=== PATIENT | female | born 1980 | race Caucasian/White ===

== ENCOUNTER 2020-03-28 00:43 | Outpatient (CLI) | payer BC, OTHER, SELFPAY ==
[2020-03-28 16:39] LABS: SARS-CoV-2 RNA PCR Negative
== END 2020-03-28 00:44 | disposition home or self-care (01) ==
LOC: ANHCOVIDDT 00:43
PROVIDERS: PCP Internal Medicine; Visit Provider Obstetrics & Gynecology
DX: Z01.812 Encounter for preprocedural laboratory examination (principal); Z20.828 Contact with and (suspected) exposure to other viral communicable diseases
CPT/HCPCS: 87635; C9803; U0003

== ENCOUNTER 2020-03-30 01:57 | Day surgery (SDC) | payer BC, OTHER, SELFPAY ==
[2020-03-18 14:47] VITALS: BMI 27.3
[2020-03-30] VITALS (7 sets, daily range): BP systolic 109–128; BP diastolic 61–91; PULSE 52–96; RESP 16–18; TEMP 36.7–37.1; O2SAT 100
--- NOTE | 2020-03-30 08:22 | WPDANESEPPF ---
Anes - Initial Pre Proc Eval Procedure: Operation Date: 03/30/20 12:00 Proposed Procedures p Laparoscopic Bilateral Salpingectomy - Eusebio Ahn MD Date/Time: 03/30/20 08:22 Surgeon: Eusebio hAn MD Pre Op Diagnosis: Desires sterilization Patient Data Age: 39 Gender: F Height: 5 ft 7 in Weight: 79.38 kg Allergies Allergy/AdvReac Type Severity Reaction Status Date / Time No Known Allergies Allergy Mild Unverified 03/18/20 14:48 Home Medications Medication Instructions Recorded Confirmed Type buspirone 15 mg PO BID 03/18/20 03/30/20 History cholecalciferol (vitamin D3) 25 mcg PO DAILY 03/18/20 03/30/20 History [Vitamin D3] multivitamin 1 tablet PO DAILY 03/18/20 03/30/20 History Patient hx anesthesia problems: none Family hx anesthesia problems: none [facility] Past Medical History Medical History (Updated 03/30/20 @ 08:22 by Kristian Vargas MD) Anxiety Social History Social History Years smoked: 20 Smoking status: Current some day smoker Tobacco type: cigarettes Alcohol intake: current Drinks per week: 10 Spiritual care concerns: No Anes - Eval Final PreProcedure Day of Procedure 03/30/20 08:22 Patient weight: normal Heart: regular rate and rhythm Lungs: clear to auscultation Airway: Mallampati scale class II Neurological: alert and oriented Last oral intake: >/= 8 hours ASA classification: II Emergent: no Anesthetic plan: proceed Anesthesia type and monitoring: general ETT and standard monitoring Informed Consent: The patient's anesthetic plan and its attendant risks and benefits were discussed with the patient/family/POA. Questions were solicited and answers provided to the satisfaction of the patient/family/POA.
[2020-03-30] MEDS: LACTATED RINGERS 1,000 ML 30 ML IV CONT ×2 (10:30→12:48)
[2020-03-30] MEDS: ACETAMINOPHEN 500 MG TABLET 1000 MG PO (10:32)
[2020-03-30] MEDS: KETOROLAC 15 MG/ML VIAL (*BKC) IV PUSH (10:49)
--- NOTE | 2020-03-30 11:52 | P.HP_ITS ---
H&P: HPI History of Present Illness Date/Time: 03/30/20 11:52 Chief complaint: Desires sterilization Narrative: Dulce Jimenez is a 39 year old female presents for permanent sterilization. We have discussed the permanence failure rate and increased risk of ectopic and regret and she strongly desires to proceed. Options have been discussed and declined. Review of Systems Review of Systems: All systems reviewed & are unremarkable except as noted in HPI and below PMFSH Past Medical History Medical History Anxiety Social History Social History Years smoked: 20 Smoking status: Current some day smoker Tobacco type: cigarettes Alcohol intake: current Drinks per week: 10 Spiritual care concerns: No Meds Home Medications and Allergies Home Medications Medication Instructions Recorded Confirmed Type buspirone 15 mg PO BID 03/18/20 03/30/20 History cholecalciferol (vitamin D3) 25 mcg PO DAILY 03/18/20 03/30/20 History [Vitamin D3] multivitamin 1 tablet PO DAILY 03/18/20 03/30/20 History Allergies Allergy/AdvReac Type Severity Reaction Status Date / Time No Known Allergies Allergy Mild Unverified 03/18/20 14:48 Vital Signs Vital Signs - 24 hr 03/30/20 10:44 Temperature 37.1 C Pulse Rate 78 Blood Pressure 122/91 H Pulse Oximetry 100 Exam 2 Const: General: no acute distress Resp: Auscultation: clear to auscultation bilaterally Cardio: Rate: regular rate Rhythm: regular rhythm GI: GI Palp: Yes Soft to palpation : External Female Exam: normal external appearance Other: Uterus n onenlarged nontender adnexa nonenlarged and nontender Assessment and Plan Assessment and plan (1) Encounter for sterilization: Code(s): Z30.2 - Encounter for sterilization Status: Acute Assessment and Plan: Will proceed with laparoscopic bilateral salpingectomy.
--- NOTE | 2020-03-30 11:54 | WPDHPUPDATE1 ---
History and Physical Update Update Date/Time: 03/30/20 11:54 History and Physical has been reviewed, including an updated exam of the patient. There are NO changes in the patient's condition. Risks, benefits, and alternatives have been discussed and questions answered. Patient agrees to proceed with procedure.
--- NOTE | 2020-03-30 12:37 | PM.OP ---
Procedure Note - Brief Procedure Note - Brief Date of procedure: 03/30/20 Pre-op diagnosis: Desires sterilization Post-op diagnosis: same Procedure performed: Laparoscopic bilateral salpingectomy Description of procedure: patient prepped and draped usual manner for this procedure. Cervical instruments were placed for uterine mobility throughout the case. Abdominal trocar sites were placed under direct visualization. Using the Harmonic scalpel the mesial salpinx was cauterized and cut bilaterally and the tubes were removed without difficulty. There was no bleeding. No evidence of pathology throughout the rest of the pelvis. Gas was allowed escape incisions approximated using 4 0 Monocryl once the trocars were removed. Anesthesia: GLMA Surgeon: Eusebio Ahn MD Estimated blood loss (mL): 10 Drains: No Packing: No Pathology: yes Complications: No immediate complications Condition: stable Disposition: PACU Findings: Uterus tubes and ovaries without abnormality.
[2020-03-30] MEDS: oxyCODONE HCL (*CRX) 5 MG TAB IR PO (13:44)
== END 2020-03-30 14:23 | disposition home or self-care (01) ==
PROVIDERS: PCP Internal Medicine; Visit Provider Obstetrics & Gynecology
PROC: (CPT 49320; principal; 2020-03-30 12:00)
DX: Z30.2 Encounter for sterilization (principal); N83.8 Other noninflammatory disorders of ovary, fallopian tube and broad ligament
CPT/HCPCS: 58661; 87635; 88302; A9270; C9803; J0330; J1885; J2250; J2405; J2704; J3010; J7030; J7120; U0003

== ENCOUNTER → 2021-01-02 16:05 | Outpatient (REF) | payer OTHER, SELFPAY | LOC: ANHLAB 16:05 | PROVIDERS: PCP Internal Medicine; Visit Provider Nurse Practitioner | DX: D22.39 Melanocytic nevi of other parts of face (principal) | CPT/HCPCS: 88305 ==

== ENCOUNTER 2024-05-28 17:20 | Outpatient (CLI) | payer OTHER, SELFPAY ==
--- NOTE | ~2024-05-28 | XR_ITS ---
HISTORY: Low back pain unspecified COMPARISON: None TECHNIQUE: 3 views of the sacrum and coccyx were performed FINDINGS: Separation of the distal coccyx is detected of approximately 6 mm. Smaller separation of the proximal coccyx of 3 mm is noted. Bone mineralization is unremarkable. IMPRESSION: Coccygeal separation, as detailed above. Reviewed, dictated and finalized at location A. NIC SECTION TECHNICAL LEAD
--- NOTE | ~2024-05-28 | XR_ITS ---
HISTORY: Low back pain unspecified COMPARISON: None. TECHNIQUE: 3 view lumbar spine. FINDINGS: Lumbar vertebral bodies are normally aligned. There are 5 non-rib bearing lumbar vertebral bodies. Disc spaces and vertebral body heights are well maintained. There are no lytic or sclerotic lesions. Paraspinal soft tissues are normal. IMPRESSION: Unremarkable lumbar spine series, as detailed above. Reviewed, dictated and finalized at location A. 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
== END 2024-05-28 17:21 | disposition home or self-care (01) ==
LOC: ANHIMG 17:25
PROVIDERS: PCP Internal Medicine; Visit Provider Internal Medicine
DX: S33.2XXA Dislocation of sacroiliac and sacrococcygeal joint, initial encounter (principal); X58.XXXA Exposure to other specified factors, initial encounter
CPT/HCPCS: 72100; 72220

== ENCOUNTER 2025-02-04 04:44 | Emergency (ER) | payer OTHER, SELFPAY ==
--- OUTSIDE RECORDS SUMMARY | 2025-02-04 04:46 | XMS_ITS | Data Portability ---
Author Organization [place] [facility] [employer], Main Office Address [address] [place] [address] Care Team Providers Care Jigger Operator Name Role Phone CHARIS BATES Primary Care Provider [phone] CHARIS BATES Referring Provider Assessment Encounter Date Assessment Date Assessment LastModified by Organization Details LastModified Time 03/03/2024 03/03/2024 the patient has continuing lateral epicondylitis of the right elbow we talked about further treatment options we could try 1 more shot of cortisone. If this continues on and on 1 solution could be surgical intervention we talked about this in detail today she would like to avoid that I agree hopefully we will get her better with time we talked about aggressive massage stretching icing as well she will continue with oral anti-inflammator y medication. Under sterile conditions I injected the patient's right elbow lateral epicondylar ECRB attachment with 2 cc 0.5% Marcaine and 10 mg of Kenalog. Patient tolerated procedure well. I will see her back as needed she has an elbow strap she will use this as well and try to avoid activities aggravate her symptoms. She voiced understanding agrees above plan she will call for any further problems difficulties or questions. 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 She has had a recurrence of pain lately she would like to try 1 last shot of cortisone to see if this helps after that she may need to consider surgical intervention. Today we talked about the surgery in detail including risks benefits limitations and alternatives the procedure itself and recovery time. If the shot does not give her good long-term relief she is going to consider surgery and I have given her Dr. So's card today to follow up with him if necessary. At her request under sterile conditions I injected the patient's right elbow lateral epicondylar ECRB attachment with 2 cc of 0.5% bupivacaine and 10 mg of Kenalog. Patient tolerated procedure well. We are also going to try a course of Celebrex 200 mg daily she will start this after she tries a course of oral prednisone for 6 days with a burst and taper. She will use ice stretching and activity modification as necessary she also has an elbow strap that she is using. She will continue with this. She voiced understanding and agreed with the above plan she will call for any further problems difficulties or questions. Not available 07/31/2024 11:44:40 Plan of Treatment Reminders Order Date Submit Date Provider Last Modified By Organization Details Last Modified Time Details Appointments None recorded. Lab CBC w/ auto diff 2024 025 [email or web address] [facility] (Lab), [address] [place], [address], 5 15:45:59 CMP, serum or plasma [email or web address], [address] [place], [address], 5 15:46:09 lipid panel, serum 2024 025 [facility], [address] [place], [address], 5 20:29:21 Referral None recorded. Procedures injection/a spiration joint/bursa (PROC) 2024 025 [email or web address] In-Office Order, Internal Use Only DO Not Attach Compendium DO Not Attach Compendium, Do Not Delete/merge, [id number] 5 10:53:15 injection/a spiration joint/bursa (PROC) 2023 024 [email or web address] In-Office Order, Internal Use Only DO Not Attach Compendium DO Not Attach Compendium, Do Not Delete/merge, [id number] 09:13:10 Surgeries None recorded. Imaging XR, elbow 2024 025 [email or web address] [facility], [address], [place], [address], 11:46:00 Medication Orders meloxicam 7.5 mg tablet 2024 025 [facility] #88584, [address], [place], [place], [id number], 5 12:36:40 buspirone 15 mg tablet 2024 025 [facility] #46996, [address], [place], [place], [id number], 5 12:36:40 buspirone 15 mg tablet 2024 025 [facility], [address], [id number], 5 12:58:05 trazodone 50 mg tablet 2024 025 [facility] #33279, [address] [place], [place], [id number], 5 16:00:34 bupivacaine HCl 0.5 % (5 mg/mL) injection solution 2024 025 [email or web address] eaflaquita [facility] #91419, [address], [place], [place], [id number], 5 15:47:14 Kenalog 10 mg/mL suspension for injection 2024 025 [email or web address] eaflaquita [facility] #06881, [address], [place], [place], [id number], 5 15:47:17 prednisone 10 mg tablets in a dose pack [email or web address] [facility] #95439, [address], [place], [place], [id number], 5 15:48:04 celecoxib 200 mg capsule [email or web address] [facility] #37361, [address], [place], [place], [id number], 5 15:47:48 Marcaine (PF) 0.5 % (5 mg/mL) injection solution 2023 024 [email or web address] [facility] #26906, [address], [place], [place], [id number], 5 10:51:12 Kenalog 10 mg/mL suspension for injection [email or web address] [facility] #39428, [address], [place], [place], [id number], 5 15:47:17 Patient TargetsNo targets recorded. Patient Instructions Encounter Date Encounter Id Patient Instructions Last Modified By Organization Details Last Modified Time 12/15/2024 [id number] Take medication as discussed in office. Must come back in one month for follow up. [email or web address] Not available 12/15/2024 12:48:27 Discussed stress and anxiety tools to use to help with worry. Discussed therapy Not available 12/15/2024 12:46:02 01/06/2025 [id number] Take medication as discussed in office as needed. Make sure to take with food, avoid additional otc medications while taking meloxicam. [email or web address] Not available 01/06/2025 12:34:10 Discussed medications and overall improvements with anxiety at this time. If side effects begin or s/hi occurs, please stop taking medication and call office. [email or web address] Not available 01/06/2025 12:36:09 Reason for Referral None Reported. Results Created Date Observation Date Name Description Value Unit Range Abnormal Flag Note LastModifiedBy Organization Detail LastModifiedTime 05/29/20 24 05/28/2024 XR, sacru m + coccy x No observ ation record ed. [address] [facility] [address] [facility] [address], [place], [address], 06/03/2024 08:55:11 05/29/20 24 05/28/2024 XR, sacru m + coccy x No observ ation record ed. [email or web address] [facility] [address] [facility] [address], [place], [address], 06/03/2024 09:47:59 05/29/20 24 05/28/2024 XR, sacru m + coccy x No observ ation record ed. [address] [facility] [address] [facility] [address], [place], [address], 06/03/2024 08:31:51 07/31/19 25 XR, elbow No observ ation record ed. [email or web address] [facility] [place] [address] [facility] [address], [place], [address], 07/31/2024 11:45:11 Result Notes None recorded. Problems Name Problem SNOMED Code Status Onset Date Resolution Date Notes Provider Name and Address Organization Details Recorded Time Constipat ion 07154576 Completed Not Available [facility] 3 14:10:28 Hyperhidr osis 345477497 Active Not Available [facility] 3 14:10:28 Localized , primary osteoarth ritis of elbow 934938617 Completed Not Available [facility] 3 14:10:28 Depressiv e disorder 01761813 Active Not Available [facility] 3 14:10:28 Pharyngit is 629714593 Completed Not Available [facility] 3 14:10:28 Anxiety 11952958 Active Not Available [facility] 3 14:10:28 Pain of elbow region 29581629 Completed 202001/19/2022 Not Available [facility] 3 14:10:29 Normal grief reaction 878905297 Active 2021 Not Available [facility] 3 14:10:28 Acute sinusitis 68009572 Active 2021 Not Available [facility] 3 14:10:28 Dizziness 329248149 Completed 202107/30/2022 Not Available [facility] 3 14:10:28 Vertigo 913946632 Active 2021 Not Available [facility] 3 14:10:28 Eruption 844185378 Active 2022 Iesha Kendall RN null, [place] [facility] 3 12:07:42 Acute urinary tract infection 049155787 Active 2022 Mary Carlin LPN null, [place] [facility] 3 14:04:35 Cyst of skin 256919645 Active 2022 Charis Bates MD [address] [facility], [address] [address], [place], [address] , [facility] 3 14:56:16 Sore throat 093671490 Active 2022 Mary Carlin LPN null, [place] [facility] 3 12:46:38 Pain of right elbow joint 56236737309 613314 Active 2022 Maribel Red CNA null, [place] [facility] 3 11:25:40 Lateral epicondyl itis of right humerus 15707016848 9107 Active [address] [facility] [facility] [address], [place], [address] , [facility] 3 11:52:03 Nausea 524331015 Active 2023 Nancy Santos MA null, [place] - [facility] [employer] [facility] 4 14:10:04 Low back pain 353274293 Active 2023 Nancy Santos MA null, [place] [employer] [facility] [employer] [facility] 4 14:01:21 Otalgia of left ear 0556105146 Active 2024 Charis Bates MD [address] [facility], [facility] [address], [place], [address] , [facility] [employer] [facility] 5 15:58:33 Insomnia 035455493 Active 2024 Mary Carlin LPN null, [place] [employer] [facility] [employer] [facility] 5 12:40:20 Problem Notes None recorded. Procedures Surgical History Date Name Laterality Status Provider Name and Address Organization Details Recorded Time 03/30/20 Tubal Ligation completed Not Available [facility] 09/12/2022 14:09:49 03/11/20 20 Date of Last Pap Smear completed Not Available [facility] 09/12/2022 14:09:49 01/20/20 15 other completed Not Available [facility] 09/12/2022 14:09:49 loop electrosurgical excision procedure completed Not Available [facility] 09/12/2022 14:09:49 Imaging Results None recorded. Procedure Notes None recorded. Medical Equipment None Reported. Allergies No known drug allergies Medications Name Sig Start Date Stop Date Status Note LastModified by Organization Details LastModified Time celecoxib 200 mg capsule TAKE 1 CAPSULE BY MOUTH EVERY DAY 08/18 completed Not Available Not Available Not Available cyclobenza morgan 10 mg tablet 05/18 completed Not Available Not Available Not Available amoxicilli n 500 mg capsule TAKE 1 CAPSULE BY MOUTH THREE TIMES DAILY FOR 7 DAYS 06/21 completed Not Available Not Available Not Available prednisone 10 mg tablet active Not Available Not Available Not Available doxycyclin e hyclate 100 mg capsule TAKE 2 CAPSULES BY MOUTH EVERY DAY active Not Available Not Available No t Available trazodone 50 mg tablet TAKE 1 TABLET BY MOUTH AT BEDTIME NEEDED 2024 active Not Available Not Available Not Avai lable ibuprofen 800 mg tablet TK 1 T PO TID active Not Available Not Available No t Available fluconazol e 150 mg tablet active Not Available Not Available Not Available hydrocodon e 5 mg-acetami nophen 325 mg tablet TK 1 T PO Q 6 H PRN P active Not Available Not Available No t Available meloxicam 15 mg tablet TK 1 T PO D PRN 10/30 completed Not Available Not Available Not Available Elidel 1 % topical cream active Not Available Not Available Not Available ondansetro n HCl 4 mg tablet TAKE 1 TABLET BY MOUTH THREE TIMES DAILY NEEDED 07/31 completed Not Available Not Available Not Available bupivacain e HCl 0.5 % (5 mg/mL) injection solution Take 10 mg by injectio n route. 08/18 completed Not Available Not Available Not Available spironolac tone 100 mg tablet TAKE 1 TABLET DAILY 06/21 completed Not Available Not Available Not Available topiramate 25 mg tablet 05/18 completed Not Available Not Available Not Available phentermin e 37.5 mg tablet 05/18 completed Not Available Not Available Not Available tramadol 50 mg tablet 05/18 completed Not Available Not Available Not Available prednisone 10 mg tablets in a dose pack Take 1 tab by mouth, 3 times a day for 3 daysTake 1 tab by mouth 2 times a day for 2 daysTake 1 tab by mouth once a day for 1 day 08/18 completed Not Available Not Available Not Available meloxicam 7.5 mg tablet TAKE 1 TABLET BY MOUTH EVERY DAY FOR 30 DAYS active Not Available Not Available No t Available Claritin-D 24 Hour 10 mg-240 mg tablet,ext ended release Take 1 tablet every day by oral route as needed. 03/11 completed Not Available Not Available Not Available lorazepam 0.5 mg tablet TAKE 1 TABLET BY MOUTH TWICE DAILY NEEDED 06/21 completed Not Available Not Available Not Available Kenalog 10 mg/mL suspension for injection Take 10 mg by injectio n route. 08/18 completed [facility]: [phone] 94-20 Not Available Not Available Not Available meclizine 25 mg tablet Take 1 tablet 3 times a day by oral route as needed. 06/21 completed Not Available Not Available Not Available erythromyc in 5 mg/gram (0.5 %) eye ointment APPLY SMALL AMOUNT IN RIGHT EYE AT BEDTIME active Not Available Not Available No t Available oseltamivi r 75 mg capsule 03/11 completed Not Available Not Available Not Available ranitidine 150 mg tablet 05/18 completed Not Available Not Available Not Available prednisone 50 mg tablet 05/18 completed Not Available Not Available Not Available Drysol Dab-O-Kulwant c 20 % topical solution Apply every day by topical route at bedtime. 01/22 completed Not Available Not Available Not Available ergocalcif dorothy (vitamin D2) 1,250 mcg (50,000 unit) capsule 05/18 completed Not Available Not Available Not Available methylpred nisolone 4 mg tablets in a dose pack FOLLOW PACKAGE DIRECTIO NS 07/31 completed Not Available Not Available Not Available fluoxetine 20 mg capsule active Not Available Not Available Not Available naproxen 500 mg tablet Take 1 tablet twice a day by oral route. active Not Available Not Available No t Available spironolac tone 50 mg tablet TAKE 1 TABLET BY MOUTH EVERY DAY 03/28 completed Not Available Not Available Not Available buspirone 15 mg tablet TAKE 1 TABLET BY MOUTH TWICE DAILY NEEDED active Not Available Not Available No t Available clindamyci n 1 % lotion active Not Available Not Available Not Available escitalopr am 10 mg tablet Take 1 tablet every day by oral route. active Not Available Not Available No t Available cyclobenza morgan 5 mg tablet Take 1 tablet 3 times a day by oral route. active Not Available Not Available No t Available Marcaine (PF) 0.5 % (5 mg/mL) injection solution Take 10 mg by injectio n route. 07/31 completed Not Available Not Available Not Available nitrofuran toin monohydrat e/macrocry stals 100 mg capsule TAKE 1 CAPSULE BY MOUTH EVERY 12 HOURS FOR 5 DAYS 06/21 completed Not Available Not Available Not Available metronidaz ole 1 % topical gel APPLY TO FACE ONCE DAILY. MOISTURI ZE AFTER active Not Available Not Available No t Available lidocaine (PF) 10 mg/mL (1 %) injection solution In office injectio n administ ered by the provider 01/30 completed [facility]: 0409-42 76-17 Not Available Not Available Not Available Oracea 40 mg capsule,im mediate - delay release active Not Available Not Available Not Available tretinoin 0.05 % topical gel 10/09 completed Not Available Not Available Not Available Suprep Bowel Prep Kit 17.5 gram-3.13 gram-1.6 gram oral solution MIX AND DRINK PO UTD 10/30 completed Not Available Not Available Not Available SulfaClean se 8-4 8 %-4 % topical suspension 05/18 completed Not Available Not Available Not Available Onexton 1.2 % (1 % base)-3.75 % topical gel 10/30 completed Not Available Not Available Not Available Soolantra 1 % topical cream APPLY A PEA-SIZE D AMOUNT BY TOPICAL ROUTE ONCE DAILY TO COVER AREAS OF FACE WITH THIN LAYER AVOIDING THE EYES AND LIPS 06/21 completed Not Available Not Available Not Available Fluvirin 8396-9589 45 mcg (15 mcg x 3)/0.5 mL intramuscu lar suspension active Not Available Not Available N ot Available Aczone 7.5 % topical gel with pump 05/18 completed as needed Not Available Not Available Not Available Fluvirin 7618-1549 45 mcg (15 mcg x 3)/0.5 mL intramuscu lar suspension ADM 0.5ML IM UTD 10/30 completed Not Available Not Available Not Available Afluria Quad 5168-8131 (PF) 60 mcg (15 mcg x 4)/0.5 mL IM syringe ADM 0.5ML IM UTD 10/09 completed Not Available Not Available Not Available Afluria Qd 2018- (36 mos up)(PF)60 mcg (15 mcg x4)/0.5 mL IM syringe ADM 0.5ML IM UTD 05/18 completed Not Available Not Available Not Available ID NOW COVID-19 Test Kit USE DIRECTED 01/22 completed Not Available Not Available Not Available COVID-19 test specimen collection TEST DIRECTED 01/22 completed Not Available Not Available Not Available Vitals Date Recorded Body height Body mass index (BMI) Body weight Provider Name and Address Organization Details Last Updated DateTime 07/31/2024 170.18 cm 26.6 kg/m2 12337.7 g BERTRAND Anguiano [employer] 07/31/2024 10:50:20 Date Recorded Body height Body temperature Heart rate Oxygen saturation Oxygen saturation in Arterial blood by Pulse oximetry Systolic And Diastolic Provider Name and Address Organization Details Last Updated DateTime 02/04/202 5 170.18 cm 97 [degF] 75 /min 98 % 98 % 140/96 mm[Hg] SHARRON Haro [place] [employer] [facility] [employer] 5 15:46:07 Date Recorded Body height Body mass index (BMI) Body weight Body temperature Oxygen saturation Oxygen saturation in Arterial blood by Pulse oximetry Heart rate Systolic And Diastolic Provider Name and Address Organization Details Last Updated DateTime 5 170.18 cm 27.9 kg/m2 56877.8 8 g 97.5 [degF] 98 % 98 % 70 /min 122/84 mm[Hg] Madison Almodovar RN [facility] [employer] 5 12:19:59 Date Recorded Body height Body mass index (BMI) Body weight Body temperature Oxygen saturation Oxygen saturation in Arterial blood by Pulse oximetry Heart rate Systolic And Diastolic Provider Name and Address Organization Details Last Updated DateTime 5 170.18 cm 27.9 kg/m2 50808.4 4 g 97.4 [degF] 98 % 98 % 82 /min 128/78 mm[Hg] Lazara andersen [place] [employer] [facility] [employer] 5 11:54:20 Date Recorded Body height Body mass index (BMI) Body weight Provider Name and Address Organization Details Last Updated DateTime 03/03/2024 172.72 cm 25.8 kg/m2 76852.7 g Maribel Red CNA [place] [employer] [facility] [employer] 03/03/2024 09:02:49 Social History Question Answer Notes LastModified by Organizat ion Details LastModified Time Tobacco Smoking Status Never Smoker Not Available [facility] 09/12/2022 14:09:48 What Is Your Level Of Caffeine Consumption? Occasional [id number] Information not available 09/12/2022 How Much Tobacco Do You Chew? None [id number] Information not available 09/12/2022 What Type Of Diet Are You Following? REGULAR [id number] Information not available 09/12/2022 Which Illicit Or Recreational Drugs Have You Used? None [id number] Information not available 09/12/2022 What Was The Date Of Your Most Recent Tobacco Screening? 12/05/2020 [id number] Information not available 09/12/2022 What Is Your Relationship Status? [id number] Information not available 09/12/2022 Do You Use Sunscreen Routinely? Yes [id number] Information not available 09/12/2022 Sex: Female Functional Status Question Answer Note LastModified by Organizat ion Details LastModified Time Do you use any illicit or recreational drugs? No [id number] Information not available 09/12/2022 What is your level of alcohol consumption? 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 Occasional [id number] [id number] Information not available 09/12/2022 Mental Status None recorded. Family History Relationship Description Onset Age of this Age Resolved Age Notes LastModified by Organization Details LastModified Time Paternal Grandfather Diabetes mellitus [id number] Not available 09/12/2022 14:09:49 Paternal Grandfather Essential hypertension [id number].119 [id number] Not available 09/12/2022 14:09:49 Paternal Grandfather Malignant tumor of pharynx [id number].144 [id number] Not available 09/12/2022 14:09:50 Father Essential hypertension [id number] [id number] Not available 09/12/2022 14:09:50 Paternal Grandmother Malignant tumor of pancreas [id number].303 [id number] Not available 09/12/2022 14:09:50 Maternal Grandfather Diabetes mellitus [email or web address] Not available 2022 11:23:41 Maternal Grandfather Family history of malignant neoplasm [email or web address] Not available 2022 11:24:20 Maternal Grandfather Heart disease [email or web address] Not available 2022 11:24:36 Maternal Grandmother Family history of malignant neoplasm [email or web address] Not available 2022 11:24:20 Father Family history of stroke [email or web address] Not available 2022 11:24:58 Medical History Condition Response ANXIETY DISORDER Y HERPES Y Gynecological History Statement/Question Response Abnormal Pap Y Date of Last Pap 03/11/2020 Date of Last Pap Smear 03/11/2020 Current Control Method Sterilizati on Age at Menarche 12 Date of LMP 03/14/2021 Obstetrics History GPAL:G 2 P 2 0 0 2 Type Value Full Term 2 Living 2 Total 2 Immunizations Vaccine Type Date Status Note Provider Nam e and Address Organization Details Recorded Time Influenza, split virus, quadrivalent, preservative 9 completed Not Available [facility] 09/12/2022 14:12:13 influenza, unspecified formulation 8 completed Not Available [facility] 09/12/2022 14:12:13 influenza, unspecified formulation 6 completed Not Available [facility] 09/12/2022 14:12:13 Influenza, high-dose, trivalent, PF 5 completed Not Available [facility] 09/12/2022 14:12:13 COVID-19, mRNA, LNP-S, bivalent, PF, 10 mcg/0.2 mL 1 completed Not Available [facility] 09/12/2022 14:12:13 Past Encounters Encounter ID Performer Location Encounter Start Date Encounter Closed Date Diagnosis/Indication Diagnosis SNOMED-CT Code Diagnosis ICD10 Code Diagnosis Note [id number] Charis Bates MD [facility] [address] [address] 12/05/2020 00:00:00 12/05/2020 17:11:40 [id number] [facility] ic_[facility] _ATHENA_M IGRATION_ DEFAULT_1 _1 , 03/28/2021 00:00:00 03/28/2021 15:38:27 [id number] Charis Bates MD [facility] [address] [address] 01/22/2022 00:00:00 01/22/2022 12:57:52 [id number] Charis Bates MD [facility] [address] [address] 02/23/2022 00:00:00 02/23/2022 12:08:55 [id number] Charis Bates MD [facility] [address] [address] 03/06/2022 00:00:00 03/06/2022 11:53:01 [id number] Charis Bates MD [facility] [address] [place] [address] 07/31/2022 00:00:00 07/31/2022 16:30:22 [id number] Charis Bates MD [facility] [address] [place] [address] 04/30/2023 14:39:37 04/30/2023 14:55:47 Cyst of skin 854815698 L72.9 watchcall if gets painful or gets bigger [id number] ANITA Metcalf [facility] [address] [place] [address] 06/21/2023 11:13:34 06/21/2023 11:47:15 Pain of right elbow joint 1643955118 9528444 M25.521 Lateral ep icondylitis of right humerus 7548946589 50320 M77.11 [id number] Emeterio So MD [facility]_[address] [address] 01/07/2024 09:22:06 01/07/2024 10:37:33 Pain of right elbow joint 2834468337 6063033 M25.521 Lateral ep icondylitis of right humerus 9062784575 47978 M77.11 [id number] Emeterio So MD [facility] [address] [address] 03/03/2024 08:58:04 03/03/2024 10:11:02 Pain of right elbow joint [id number] M25.521 Lateral ep icondylitis of right humerus [id number] 04867 M77.11 [id number] Emeterio So MD [facility] [place] [address] [place] [address] 07/31/2024 10:41:35 07/31/2024 11:38:28 Pain of right elbow joint [id number] M25.521 Lateral ep icondylitis of right humerus [id number] 13153 M77.11 [id number] Charis Bates MD [facility] [address] [place] [address] 08/18/2024 15:39:47 08/18/2024 16:02:23 Otalgia of left ear [id number] H92.02 advil cold and sinus Insomnia [id number] G47.0 0 Adult heal th examination [id number] Z00.00 Z13.760 [id number] Charis Bates MD [facility] [address] [place] [address] 12/15/2024 12:09:18 12/15/2024 12:58:56 Anxiety 60587420 F41.9 Denies s/hi at this time. [id number] Charis Bates MD [facility] Internal [facility] [address] [place] [address] 01/06/2025 11:46:34 01/06/2025 12:46:51 Anxiety 07240173 F41.9 Denies s/hi at this time. Lateral ep icondylitis of right humerus [id number] 28737 M77.11 Health Concerns Section Related Observation LastModified by Organization Detai ls LastModified Time None Recorded Concern Status LastModified by Organization Details LastModified Time None Recorded Advance Directives Directive None Recorded Payers Insurance Date Sequence Insurance Name Policy Number Policy Piedra Covered Member ID Piedra Member ID Guarantor Name 01/03/2025 1 [facility] [id number] Dulce Jimenez [id number] Dulce Jimenez Notes Date Note Type Note Provider Name and Address Organization Details Recorded Time 03/03/2024 text/html Patient returns with continued right elbow pain she had a shot of cortisone a few months ago for lateral epicondylitis. This has been going on and off for years. She had a shot of cortisone in June again a few months later she comes in today stating that it is a little bit better but the pain comes and goes today is a bad day for her she can not sleep last night she has aching pain localized to the lateral epicondylar region she can not do anything heavy repetitive recently she has been moving her father into assisted living doing lots of heavy lifting with moving boxes etc. and this has really aggravated her elbow she comes in today to talk about further treatment options currently she is taking an anti-inflammatory every morning she did try prednisone but this made her too jittery and nervous she had to stop taking it. She does work on stretching and uses an elbow strap as well. ANITA Metcalf [address], [place], [address], [facility] [employer] 03/03/2024 09:16:00 07/31/2024 text/html The patient retu rns with a history of chronic right elbow pain over the lateral epicondylar region. Four years ago she had multiple injections it finally calmed down she had lateral epicondylitis not due to any known trauma or injury. Over the last year she has had couple of injections which gave her good relief but it does not last. She keeps having recurrent lateral epicondylar pain of the right elbow she can not do anything heavy repetitive. She has taken Celebrex in the past this worked well for her previously but she has run out and has not taken it for quite awhile. She was doing well so she stopped taking it over the past few weeks she has had recurrent pain without specific trauma or injury she likes to go bowling in these activities aggravate her symptoms. Today she states the pain is about an 8 on a scale of 1-10 she comes in today for further evaluation and treatment. A new past medical history sheet was reviewed and signed on the intake sheet of today's date drug allergies current medications family social history previous surgical history 10 point review of systems was reviewed and discussed in detail today with the patient. ANITA Metcalf [address], [address], [place], [address], [facility] [employer] 07/31/2024 11:45:55 08/18/2024 text/html Pt is here today C/o left ear pain, Has been going on since this morning, feels like a deep achemild sinus problemno fever Also C/o insomnia, has been going on for about 1 yr. Has tried OTC sleep aid and melatonin and has not helped. B/p was a little high today Charis Bates MD [address], [place], [address], [place] [facility] [employer] 08/18/2024 16:00:44 12/15/2024 text/html Patient is 43y/o female who is here to restart medications. She reports that with all of the life events she can not handle the anxiety and stress at this time. She also states she is not sleeping at all. She reports that she can not turn her mind off at night making her anxiety worse. She is afraid that she will loose her job due to the anxiety and distraction at this time. Patient denies chest pain, shortness of breathe, palpitations, or S/Hi at this time. Therapy-discussedMed compliance- discussed S/hi- denies patient states she feels it is more anxiety related, not depression. JOSE Tinoco [address], [address] [address], [place], [address], [employer] [facility] [employer] 12/15/2024 12:58:19 01/06/2025 text/html Patient is 44y/o female who is here for follow up on medication. Patient states that it has been working but recently just had a family trauma and has been having increased anxiety. She reports no side effects and denies Si/hi at this time. She also is reporting that she is having break through pains related to her elbow. She reports she sees Dr. Mariano but OTCs are not helping with pain or discomfort. She denies history of kidney function, ulcers, acid reflux, or stomach concerns. Orthopedics- Dr Mariano gets cortizone shots but also still needingadditional help with discomfort JOSE Tinoco [address], [address] [address], [place], [address], [employer] [facility] [employer] 01/06/2025 12:36:58 OBGyn Episode No OBEpisode recorded.
--- OUTSIDE RECORDS SUMMARY | 2025-02-04 04:46 | XMS_ITS | Continuity of Care Document ---
Author Organization [facility] Address [address] [place] [address] Phone Care Team Providers Care Contact Lens Cutter Name Role Phone Vaughn OD, Calvin Unavailable Unavailable Advance Directives Directive Yes / No Effective Date File Name No Information Encounters Encounter Description Practice Location Reason(s) For Visit Diagnoses Date Provider Providers Copied on Encounter [facility], [address], [place], [place], [id number], [place] tel:[phone] [facility] No Information 9-200 5 Vaughn OD Calvin. [address] [facility] [facility] , [address], [place], [address], [place]. tel:[phone] Family History Family Member Type Diagnosis Age At Onset No Information Payers Payer name Insurance type Covered libertarian ID Authoriza tishayna(s) [facility] Commercial CI [id number] Social History Type Description Quantity Date Captured Comments Sex Female Smoking Status No Information Chief Complaint And Reason For Visit No Information Reason For Referral Reason For Referral No Information History Of Present Illness Encounter Date Complaint History Of Prese nt Illness No Information Functional Status Date Functional Assessmen t No Information Instructions Date Instruction Additional Infor mation No Information Assessments Type Assessment Date No Information Patient Care Teams Name Effective Dates (start - stop) Status Members No Information
--- OUTSIDE RECORDS SUMMARY | 2025-02-04 04:46 | XMS_ITS | Clinical Summary ---
Author Organization [facility] Address [address] [place] [place] [address] Care Team Providers Care Etcher Machine Name Role Phone Unavailable Primary Care Provider Unavailabl e Source Comments [facility],non-owned Affiliates and Associated Physician Practices is amultiple site organization consisting of ambulatory clinics and hospital sitesin [place], [place], [place] and [place]. This disclosure is being madepursuant to the Care Everywhere program and may not contain all information available regarding this patient. Last updated 18.[facility] Allergies No known active allergies Medications * Be aware that medications may not be up to date on this document. Alwaysverify current medications with the patient. 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 Gender Identity Not on file Sexual Orientation Not on file Last Filed Vital Signs Vital Sign Reading Time Taken Comments Blood Pressure 110/70 09/01/2019 3:08 PM DISPATCHER [employer]ICE [employer] WORK Pulse 84 09/01/2019 3:08 PM DISPATCHER SERVICE [employer] WORK Temperature 36.9 C (98.4 F) 09/01/2019 3:08 PM DISPATCHER SERVICE [employer] WORK Respiratory Rate 16 09/01/2019 3:08 PM DISPATCHER SERVICE OR WORK Oxygen Saturation 98% 09/01/2019 3:08 PM DISPATCHER SERVICE OR WORK Inhaled Oxygen Concentration - - Weight 81.6 kg (180 lb) 09/01/2019 3:08 PM DISPATCHER SERVICE OR WORK Height 172.7 cm (5' 8) 09/01/2019 3:08 PM DISPATCHER SERVICE OR WORK Body Mass Index 27.37 09/01/2019 3:08 PM DISPATCHER SERVICE OR WORK Plan of Treatment Health Maintenance Due Date Last Done Comments LIPID TESTING 1981 MAMMOGRAM 1981 HIV SCREENING 1996 HEPATITIS C SCREENING 10/30/1999 DTAP/TDAP/TD VACCINES (1 - Tdap) 2000 HEPATITIS B VACCINE (1 of 3 - 19+ 3-dose series) 2000 HPV VACCINE (1 - 3-dose SCDM series) 2008 COVID-19 VACCINE ( - season) 2024 DEPRESSION SCREENING 07/15/2024 INFLUENZA VACCINE (#1) 2025 9, 04/02/2018, 04/04/2016, Additional history exists ZOSTER VACCINE (1 of 2) 11/04/2031 HIB VACCINE Aged Out No longer eligi ble based on patient's age to complete this topic MENINGOCOCCAL (Group B) VACCINE SHARED DECISION-MAKING Aged Out No longer eligible based on patient's age to complete this topic MENINGOCOCCAL GROUPS A/C/Y/W VACCINE Aged Out No longer eligible based on patient's age to complete this topic PNEUMOCOCCAL VACCINE Aged Out No long er eligible based on patient's age to complete this topic Insurance [employer]
[2025-02-04 04:51] VITALS: BP 137/97; PULSE 118; RESP 18; TEMP 36.8; O2SAT 99
[2025-02-04 06:31] LABS: BEDSIDEPREGUCG Negative (Negative)
[2025-02-04 06:33] VITALS: BP 132/84; PULSE 84; RESP 16; TEMP 36.6; O2SAT 99
[2025-02-04 06:38] LABS: Hematocrit 40.2 % (37.0-47.0); Hemoglobin 13.9 g/dL (12.0-15.0); Immature Granulocyte Percent A 0.4 % (0-0.5); Lymphocytes Absolute Auto 0.54 K/mm3 (0.9-3.2); Mean Corpuscular HGB Conc 34.6 g/dl (32-36); Mean Corpuscular Hemoglobin 33.2 pg (26-34); Mean Corpuscular Volume 95.9 fl (80-100); Nucleated Red Blood Cells Absolute Auto 0.000 K/mm3 (0.0-0.012); Nucleated Red Blood Cells Perc 0.0 % (0.0-0.2); Platelet Count Result 264 k/mm3 (150-375); Red Blood Count 4.19 M/mm3 (4.2-5.4); White Blood Count 5.2 K/mm3 (4.5-10.0)
[2025-02-04 06:55] LABS: Need Manual Microscopic Reviewed; Non Pathogenic Casts 0-2
[2025-02-04 06:56] LABS: Add Urine Microscopic? YES; Appearance Urine Turbid (Clear); Glucose Urine UA Negative (Negative); Leukocyte Esterase Ur 2+ LEU/UL (Negative); Nitrate Urine Positive (Negative); Specific Grav Ur 1.025 (1.001-1.035)
[2025-02-04 07:01] LABS: Alanine Aminotransferase 105 U/L (6-35); Albumin Level 4.7 g/dL (3.5-5.1); Alkaline Phosphatase 50 U/L (38-126); Anion Gap 10 mmol/L (4-12); Aspartate Amino Transferase 77 U/L (14-36); Bilirubin,Total 1.2 mg/dL (0.2-1.3); Blood Urea Nitrogen 11 mg/dL (7-17); Calcium 9.6 mg/dL (8.4-10.2); Carbon Dioxide 25 mmol/L (22-30); Chloride 97 mmol/L (98-107); Estimated CRCL calculation 101 ml/min; Estimated Glomerular Filt Rate > 60; Glucose 119 mg/dL (65-110); Lipase 104 U/L (23-300); Potassium 3.5 mmol/L (3.4-5.0); Sodium 132 mmol/L (137-145); Total Protein 8.9 g/dL (6.3-8.2)
[2025-02-04 07:28] VITALS: BP 119/85; PULSE 86; RESP 18; O2SAT 97
[2025-02-04] MEDS: SODIUM CHLORIDE 0.9% IV 1,000 ML 999 ML IV CONT (08:00)
[2025-02-04] MEDS: MORPHINE SULFATE (*CRX) 4 MG/ML INJ IV PUSH (08:01)
[2025-02-04] MEDS: ONDANSETRON INJ 4 MG/2 ML VIAL IV PUSH (08:01)
--- OUTSIDE RECORDS SUMMARY | 2025-02-04 08:24 | XMS_ITS | Continuity of Care Document ---
Author Organization [facility] Address [address] [place] [address] Phone Care Team Providers Care Primary Special Educator Name Role Phone Vaughn OD, Calvin Unavailable Unavailable Advance Directives Directive Yes / No Effective Date File Name No Information Encounters Encounter Description Practice Location Reason(s) For Visit Diagnoses Date Provider Providers Copied on Encounter [facility], [address], [place], [place], [id number], [place] tel:[phone] [address] [facility] No Information 9-200 5 Vaughn OD Calvin. [address] , [address], [place], [address], [place]. tel:[phone] Family History Family Member Type Diagnosis Age At Onset No Information Payers Payer name Insurance type Covered republican ID Authoriza tishayna(s) [facility] Commercial CI [id number] Social History Type Description Quantity Date Captured [...]
--- OUTSIDE RECORDS SUMMARY | 2025-02-04 08:24 | XMS_ITS | Clinical Summary ---
Author Organization [email or web address] Address [address] [place] [address] Care Team Providers Care Instrument Technician Helper Name Role Phone Unavailable Primary Care Provider Unavailabl e Source Comments [email or web address],non-owned Affiliates and Associated Physician Practices is amultiple site organization consisting of ambulatory clinics and hospital sitesin [place], [place], [place] and [place]. This disclosure is being madepursuant to the Care Everywhere program and may not contain all information available regarding this patient. 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 Gender Identity Not on file Sexual Orientation Not on file Last Filed Vital Signs Vital Sign Reading Time Taken Comments Blood Pressure 110/70 09/01/2019 3:08 PM HELPER METAL HANGING Pulse 84 09/01/2019 3:08 PM HELPER METAL HANGING Temperature 36.9 C (98.4 F) 09/01/2019 3:08 PM HELPER METAL HANGING Respiratory Rate 16 09/01/2019 3:08 PM HELPER METAL HANGING Oxygen Saturation 98% 09/01/2019 3:08 PM HELPER METAL HANGING Inhaled Oxygen Concentration - - Weight 81.6 kg (180 lb) 09/01/2019 3:08 PM HELPER METAL HANGING Height 172.7 cm (5' 8) 09/01/2019 3:08 PM HELPER METAL HANGING Body Mass Index 27.37 09/01/2019 3:08 PM HELPER METAL HANGING Plan of Treatment Health Maintenance Due Date [...]
--- NOTE | 2025-02-04 09:11 | ED_ITS ---
HPI - Nausea/Vomiting/Diarrhea General Chief complaint: Nausea/Vomiting/Diarrhea Stated complaint: n/v, shakes from dehydration Time Seen by Provider: 02/04/25 07:38 History of Present Illness HPI Narrative: Pt presents with nausea and vomiting and inability to keep anything down since last night. Pt has some intermittent abdominal cramping. Pt admits to some alcohol consumption last night. Related Data Home Medications ?Medication ?Instructions ?Recorded ?Confirmed ?Last Taken ?Type spironolactone 100 mg tablet 100 mg PO DAILY 03/25/23 06/21/23 Unknown History Allergies Allergy/AdvReac Type Severity Reaction Status Date / Time No Known Allergies Allergy Mild Verified 06/21/23 09:18 Review of Systems 2 Review of Systems: All systems reviewed & are unremarkable except as noted in HPI and below PMFSH Past Medical History Medical History (Updated 02/04/25 @ 09:17 by Mykel Noe III, DO) Screening mammogram, encounter for Bartholin's gland abscess (01/19/15) PCR DNA positive for HSV1 Abnormal Pap smear of cervix has had LEEP and CRYO done Anxiety Surgical History Surgical History History of removal of cyst (01/19/15) marsupialization of Bartholin gland abscess History of tubal ligation (03/30/20) History of cryosurgery of cervix H/O LEEP Family History Family History (Updated 03/25/23 @ 14:25 by SHARRON Bronson) Father Hypertension Cerebrovascular accident Grandparent Hypertension paternal grandfather Diabetes mellitus paternal grandfather Malignant tumor of pharynx paternal grandfather Malignant tumor of pancreas paternal grandfather Mother Dementia Social History Social History (Updated 06/21/23 @ 09:22 by Veronika Wyman MA) Years smoked: 20 Smoking status: Current some day smoker Tobacco type: cigarettes Alcohol intake: current Drinks per week: 10 Substance use: never Substance use type: does not use Lack of Transportation: No Lack of Food: Never True Current Housing: I Have Housing Concerned About Future Housing: No Difficulty Paying Gas/Electric Bills: No Difficulty Paying for Meds: No Currently Unemployed: No Education: Associate Degree Difficulty w/ Childcare or Family Care: No Living arrangements: other Additional living arrangements comments: Occupation/Education: occupation 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 Gender identity (if verbalized by the patient): Female Sexual Orientation (if Verbalized by the Patient): Straight or Heterosexual Spiritual care concerns: No Exam 2 Const: General: healthy appearing and no acute distress Nutritional Appearance: well nourished Orientation/consciousness: patient oriented x3 Limitations: no limitations Eyes: Conjunctivae: conjunctivae normal EOM: EOMs intact bilaterally Chest: Chest palpation & inspection: normal inspection of the chest Resp: Effort & Inspection: normal respiratory effort Auscultation: clear to auscultation bilaterally Cardio: Rate: regular rate Rhythm: regular rhythm GI: GI Palp: Yes Soft to palpation and No Tenderness to palpation present (GI) Auscultation: normal bowel sounds Skin: General skin exam: normal color Wounds: no wounds Neuro: General: patient oriented x3, moves all extremities and no focal motor deficits Speech: normal speech Extrem: General: normal to inspection and no clubbing, cyanosis or edema Psych: Mental Status: mental status grossly normal Affect: normal affect Attitude: cooperative Course Vital Signs Vital signs: Vital Signs Temperature 98.3 F 02/04/25 04:51 Pulse Rate 118 H 02/04/25 04:51 Respiratory Rate 18 02/04/25 04:51 Blood Pressure 137/97 H 02/04/25 04:51 Pulse Oximetry 99 02/04/25 04:51 Temperature 97.8 F 02/04/25 06:33 Pulse Rate 75 02/04/25 09:28 Respiratory Rate 18 02/04/25 09:28 Blood Pressure 129/75 02/04/25 09:28 Pulse Oximetry 100 02/04/25 09:28 Oxygen Delivery Room Air 02/04/25 06:33 MDM - Nausea/Vomiting/Diarrhea MDM Narrative Medical decision making narrative: Pt presents with vomiting could be gastritis or alcoholic gastritis. will check labs and give some fluids and zofran.. sodium a bit low and ermelinad slight lft elevation but no ruq pain. Pt feels better after zofran and fluids. home on zofran Lab Data 02/04/25 06:26 02/04/25 06:26 Labs: Lab Results 02/04/25 02/04/25 Range/Units 06:26 06:29 WBC 5.2 (4.5-10.0) K/mm3 RBC 4.19 L (4.2-5.4) M/mm3 Hgb 13.9 (12.0-15.0) g/dL Hct 40.2 (37.0-47.0) % MCV 95.9 (80-100) fl MCH 33.2 (26-34) pg MCHC 34.6 (32-36) g/dl RDW 11.4 L (11.5-14.5) % Plt Count 264 (150-375) k/mm3 MPV 9.7 (7.4-10.4) fl Immature Gran % (Auto) 0.4 (0-0.5) % Neut % (Auto) 81.1 H (45.5-73.1) % Lymph % (Auto) 10.4 L (18.3-44.2) % [place] % (Auto) 5.2 (2.6-8.5) % Eos % (Auto) 1.7 (0-4.4) % Baso % (Auto) 1.2 (0.2-1.2) % Lymph # (Auto) 0.54 L (0.9-3.2) K/mm3 [place] # (Auto) 0.3 (0.1-0.6) K/mm3 Eos # (Auto) 0.1 (0-0.3) K/mm3 Baso # (Auto) 0.1 (0.0-0.1) K/mm3 Abs Immat Gran (auto) 0.02 (0.00-0.031) K/mm3 Absolute Neuts (auto) 4.2 (1.3-6.7) K/mm3 Absolute Nucleated RBC 0.000 (0.0-0.012) K/mm3 Nucleated RBC % 0.0 (0.0-0.2) % Sodium 132 L (137-145) mmol/L Potassium 3.5 (3.4-5.0) mmol/L Chloride 97 L (98-107) mmol/L Carbon Dioxide 25 (22-30) mmol/L Anion Gap 10 (4-12) mmol/L BUN 11 (7-17) mg/dL Creatinine 0.59 L (0.7-1.0) mg/dL Estim Creat Clear Calc 101 ml/min Estimated GFR > 60 (59 - ) Glucose 119 H (65-110) mg/dL Calcium 9.6 (8.4-10.2) mg/dL Total Bilirubin 1.2 (0.2-1.3) mg/dL AST 77 H (14-36) U/L ALT 105 H (6-35) U/L Alkaline Phosphatase 50 (38-126) U/L Total Protein 8.9 H (6.3-8.2) g/dL Albumin 4.7 (3.5-5.1) g/dL Lipase 104 (23-300) U/L Urine Color Light red H (Yellow) Urine Appearance Turbid H (Clear) Urine pH >=9.0 H (5.0-9.0) Ur Specific [place] 1.025 (1.001-1.035) Urine Protein 3+ H (Negative) mg/dL Urine Glucose (UA) Negative (Negative) mg/dL Urine Ketones 3+ H (Negative) mg/dL Ur Blood (Man) 3+ H (Negative) Urine Nitrate Positive H (Negative) Urine Bilirubin 1+ H (Negative) Urine Urobilinogen 1.0 (<2.0) mg/dL Add Ur Microanalysis Reviewed Leukocyte Esterase Rfl 2+ H (Negative) TEZ/UL Urine RBC >100 H (0-2) /hpf Urine WBC 21-50 H (0-3) /hpf Ur Squamous Epith Cells Moderate (Few) /hpf Urine Bacteria 1+ H /hpf Urine Casts 0-2 POC Urine HCG, Qual Negative (Negative) Discharge Plan Discharge Clinical Impression: Gastroenteritis Patient Disposition: Home Condition: Improved Instructions: Antibiotic Form, Gastroenteritis (ED), Acute Nausea and Vomiting (ED) Patient Language: Haitian Prescriptions: New ondansetron 4 mg tablet,disintegrating 4 mg PO Q8H PRN (Reason: nausea and vomiting) Qty: 10 0RF No Action spironolactone 100 mg tablet 100 mg PO DAILY buspirone 15 mg tablet 15 mg PO BID Qty: 180 0RF Rx Instructions: pt will need an appointment for further refills Follow-up/Referrals: Jana,Jorge Scott MD [Primary Care Provider] -
[2025-02-04 09:28] VITALS: BP 129/75; PULSE 75; RESP 18; O2SAT 100
== END 2025-02-04 09:29 | disposition home or self-care (01) ==
PROVIDERS: Student in an Organized Health Care Education/Training Program; Emergency Provider Emergency Medicine; PCP Internal Medicine
DX: K52.9 Noninfective gastroenteritis and colitis, unspecified (principal); F41.9 Anxiety disorder, unspecified; F17.210 Nicotine dependence, cigarettes, uncomplicated; Z79.899 Other long term (current) drug therapy
CPT/HCPCS: 36415; 80053; 81001; 81025; 83690; 85025; 96361; 96374; 96375; 99284; J2270; J2405; J7030

== ENCOUNTER 2025-06-03 14:58 | Outpatient (CLI) | payer OTHER, SELFPAY ==
--- NOTE | ~2025-06-03 | MM_ITS ---
EXAMINATION: MM screening rodri BI w kacy HISTORY: Screening TECHNIQUE: Craniocaudal and mediolateral oblique 3-D tomosynthesis images were obtained and synthetic 2-D images were generated. CAD analysis was submitted and interpreted. COMPARISON: No prior mammogram is available for comparison at this institution. BREAST PARENCHYMAL COMPOSITION: Dense: The breasts are heterogeneously dense, which may obscure small masses FINDINGS: There is no evidence of suspicious mass, calcification, or architectural distortion to suggest malignancy in either breast. There has been no suspicious interval change. IMPRESSION: 1. No mammographic evidence of malignancy. 2. Recommend routine screening mammography in one year. BI-RADS Category 1: Negative Reviewed, dictated and finalized at location O. FIBER TAKER OFF
--- OUTSIDE RECORDS SUMMARY | 2025-06-03 17:58 | XMS_ITS | Clinical Summary ---
Author Organization [facility] Address [address] [place] [address] Care Team Providers Care Pilot Instructor Name Role Phone Unavailable Primary Care Provider Unavailabl e Source Comments [facility],non-owned Affiliates and Associated Physician Practices is amultiple site organization consisting of ambulatory clinics and hospital sitesin [place], [place], [place] and [place]. This disclosure is being madepursuant to the Care Everywhere program and may not contain all information available regarding this patient. 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 OFFICER Gender Identity Not on file Sexual Orientation Not on file Last Filed Vital Signs Vital Sign Reading Time Taken Comments Blood Pressure 110/70 09/01/2019 3:08 PM FORWARD AIR CONTROLLER/AIR OFFICER Pulse 84 09/01/2019 3:08 PM FORWARD AIR CONTROLLER/AIR OFFICER Temperature 36.9 C (98.4 F) 09/01/2019 3:08 PM FORWARD AIR CONTROLLER/AIR OFFICER Respiratory Rate 16 09/01/2019 3:08 PM FORWARD AIR CONTROLLER/AIR OFFICER Oxygen Saturation 98% 09/01/2019 3:08 PM FORWARD AIR CONTROLLER/AIR OFFICER Inhaled Oxygen Concentration - - Weight 81.6 kg (180 lb) 09/01/2019 3:08 PM FORWARD AIR CONTROLLER/AIR OFFICER Height 172.7 cm (5' 8) 09/01/2019 3:08 PM FORWARD AIR CONTROLLER/AIR OFFICER Body Mass Index 27.37 09/01/2019 3:08 PM FORWARD AIR CONTROLLER/AIR OFFICER Plan of Treatment Health Maintenance Due Date Last Done Comments LIPID TESTING 1981 MAMMOGRAM 1981 HIV SCREENING 1996 HEPATITIS C SCREENING 10/30/1999 DTAP/TDAP/TD VACCINES (1 - Tdap) 2000 HEPATITIS B VACCINE (1 of 3 - 19+ 3-dose series) 2000 PAP SMEAR 2002 HPV VACCINE (1 - 3-dose SCDM series) 2008 Cervical Cancer Screening 11/04/2011 PAP with HPV 11/04/2011 DEPRESSION SCREENING 07/15/2024 COVID-19 VACCINE ( - season) 2025 INFLUENZA VACCINE (#1) 2025 9, 04/02/2018, 04/04/2016, [...] age to complete this topic Insurance [facility] Address: [facility] [id number] [place] [id number]
== END 2025-06-03 14:59 | disposition home or self-care (01) ==
LOC: CHSIMG 14:59
PROVIDERS: PCP Internal Medicine; Visit Provider Obstetrics & Gynecology
DX: Z12.31 Encounter for screening mammogram for malignant neoplasm of breast (principal)
CPT/HCPCS: 77063; 77067